=== PATIENT | female | born 1980 | race Caucasian/White ===

== ENCOUNTER → 2021-01-19 | Outpatient (REF) | payer OTHER ==
[2021-01-19 12:59] LABS: PERCENT SATURATION 64.7 % (13.2-45.0)
== END ==
LOC: M SFHCRHEU 11:19
PROVIDERS: ATTEND Internal Medicine
DX: E83.19 Other disorders of iron metabolism (principal)

== ENCOUNTER → 2021-06-15 | Outpatient (REF) | payer OTHER | LOC: M SFHCRHEU 14:59 | PROVIDERS: ATTEND Internal Medicine | DX: E83.19 Other disorders of iron metabolism (principal); R74.8 Abnormal levels of other serum enzymes ==

== ENCOUNTER → 2021-08-31 | Outpatient (REF) | payer OTHER ==
[2021-08-31 16:29] LABS: BASO # 0.1 10^3/uL (0.0-0.2); BASO % 1.3 % (0.0-1.0); EOS # 0.3 10^3/uL (0.0-0.5); EOS % 4.3 % (0.0-3.0); HEMATOCRIT 43.3 % (36.0-47.0); HEMOGLOBIN 15.6 g/dl (12.0-15.5); LYMPH # 2.7 10^3/uL (1.5-5.0); LYMPH % 39.1 % (24.0-44.0); MEAN CORPUSCULAR HEMOGLOBIN 31.4 pg (27.0-33.0); MEAN CORPUSCULAR VOLUME 87.1 fl (80.0-96.0); MONO # 0.6 10^3/uL (0.0-0.8); MONO % 8.7 % (2.0-8.0); NEUTROPHILS # 3.2 10^3/uL (1.5-8.5); NEUTROPHILS % 46.5 % (36.0-66.0); PLATELET COUNT, AUTOMATED 200 10^3/uL (150-450); RED BLOOD COUNT 4.97 10^6/uL (4.00-5.40); WHITE BLOOD COUNT 6.9 10^3/uL (4.0-10.0)
[2021-08-31 16:58] LABS: ERYTHROCYTE SEDIMENTATION RATE 3 mm/hr (0-20)
[2021-08-31 16:59] LABS: ALBUMIN 4.1 GM/DL (3.2-5.2); ALT/SGPT 43 U/L (12-78); BILIRUBIN,DIRECT 0.2 MG/DL (0.0-0.2); BILIRUBIN,TOTAL 0.6 MG/DL (0.2-1.0); BLOOD UREA NITROGEN 16 MG/DL (7-18); CALCIUM LEVEL 9.1 MG/DL (8.5-10.1); CARBON DIOXIDE LEVEL 30 MEQ/L (21-32); CHLORIDE LEVEL 104 MEQ/L (98-107); CREATININE FOR GFR 1.02 MG/DL (0.55-1.30); GLOMERULAR FILTRATION RATE > 60.0 (>58); GLUCOSE, FASTING 126 MG/DL (70-100); POTASSIUM SERUM 4.1 MEQ/L (3.5-5.1); SODIUM LEVEL 138 MEQ/L (136-145); TOTAL PROTEIN 7.3 GM/DL (6.4-8.2)
== END ==
LOC: M SFHCRHEU 15:06
PROVIDERS: ATTEND Internal Medicine
DX: L40.50 Arthropathic psoriasis, unspecified (principal)

== ENCOUNTER → 2024-03-23 | Outpatient (CLI) | payer OTHER | LOC: M RAD 12:55 | PROVIDERS: ATTEND Registered Nurse | DX: R22.2 Localized swelling, mass and lump, trunk (principal); D17.39 Benign lipomatous neoplasm of skin and subcutaneous tissue of other sites ==